=== PATIENT | male | born 1965 | race Caucasian/White ===

== ENCOUNTER 2016-05-25 17:21 | Emergency (ER) | payer MEDICARE ==
[~2016-05-25 17:21] MED LIST: AUGMENTIN875 MG PO; HUMALOG100 U/M1 SUBQ; IRON SUPPLEMENT1 TAB PO; LACTULOSE10 GM/15 M PO; LANTUS100 UNITS/ SUBQ; LASIX PO; LIPITOR20 MG PO; LISINOPRIL10 MG PO; MOBIC PO; MONOCAPS TABLE1 EACH PO; NEURONTIN300 MG PO; POTASSIUM CHLO20 ME1 PO; PROPRANOLOL HCL10 M1 PO; SPIRONOLACTONE50 MG PO; XIFAXAN550 MG PO; ZINC SULFATE220 M1 PO
== END 2016-05-25 17:22 | disposition left against medical advice (07) ==
LOC: SED 17:21
DX: Z53.21 Procedure and treatment not carried out due to patient leaving prior to being seen by health care provider (principal)

== ENCOUNTER → 2016-06-13 | Outpatient (CLI) | payer MEDICARE ==
--- NOTE | ~2016-06-13 | MR176 ---
[facility] A Service of [facility] RADIOLOGY TEXT RESULTS PATIENT: DARRIN SWARTZ LOCATION: [facility] : 65 UNIT #: [id number] AGE: [address]: SILVESTRE CORRALES SEX: M ORDER DR: [id number] [facility] [address] [place], [place] [address] [id number] O MR#: [id number] Acc #: [id number] NAME: DARRIN SWARTZ. : 1965 SEX: M STUDY DATE/TIME: 06/13/2016 17:25 UNIT: [facility] ROOM: STUDY DESCRIPTION: MR Thoracic Wo Contrast Attending Physician: Silvestre Corrales Referring Physician: Silvestre Corrales Primary Care Physician: Silvestre Corrales MRI CENTER REPORT This report is preliminary unless electronic signature is present. MRI of the thoracic spine without contrast dated 06/13/2016. COMPARISON MRI of the cervical and lumbar spine without contrast dated 06/13/2016. No prior thoracic spine studies in this facility. HISTORY Patient fell off a painting ladder 24 feet in 2004 with a history of fractures. Numbness intermittently in both arms and legs since then. Chronic pain. FINDINGS Multisequence, multiplanar imaging of the thoracic spine was attempted without contrast. Though portions of the upper to mid thoracic spine are visualized, the levels from T8 inferiorly are difficult to visualize on the sagittal images. In the axials, the images below T10-11 are difficult to visualize. Multiple attempts have been obtained, but still it is very limited. There is a large right-sided pleural effusion is seen. Large right-sided pleural effusion is present, which is probably causing the loss of signal likely due to severe dielectric effect. Gradient echo sequence looks better than FSE sequence. There is diffuse decreased T1 signal in the visualized bones. It could be related to chronic systemic disease like renal failure or chronic hematopoietic disease, like anemia. No discrete well-defined bony mass with edema could be identified in the visualized portions. Mild facet degenerative changes are noted at multiple levels of the thoracic spine. There is disc disease at multiple levels with small protrusions at T1-2 to T3-4 levels based on the sagittal T1 sequence. Small similar protrusion is also seen at C7-T1, C6-7. Axials demonstrate suspicious central protrusions at T7-8 to T10-11 levels with probably more prominent central and left subarticular protrusions at T11-12. Borderline sized to mild canal stenosis is noted at T10-11 and T9-10 levels. [facility]. [facility] A Service of [facility] RADIOLOGY TEXT RESULTS PATIENT: DARRIN SWARTZ LOCATION: [facility] : 65 UNIT #: [id number] AGE: [address]: SILVESTRE CORRALES SEX: M ORDER DR: IMPRESSION 1. Study is significantly limited despite multiple repeats. The images of the lower thoracic spine are not clearly seen due to signal loss. It is worse in the sagittal plane when compared to the axial planar images. Large right-sided pleural effusion is present, which is probably causing the loss of signal likely due to severe dielectric effect. Gradient echo sequence looks better than FSE sequence. 2. There appear to be mild disc protrusions at multiple levels along with mild bilateral facet changes as described above. Borderline sized to mild canal stenosis is suspected at T9-10 and T10-11. 3. Evaluation of the cord signal is limited. Subtle increased T2 signal within the center of T6-7 cord could be a slightly prominent central canal, nonspecific. The cord is not enlarged. 4. There is diffuse decreased T1 signal in the visualized bones. It could be related to chronic systemic disease like renal failure or chronic hematopoietic disease, like anemia. No discrete well-defined bony mass with edema could be identified in the visualized portions. Dictated by... Rommel Perez M.D. THIS IS AN ELECTRONICALLY VERIFIED REPORT Rommel Perez M.D. at 06/15/2016 4:46 PM CPR/tmw TD: 06/14/2016 16:17 JOB #: [id number] MRI CENTER REPORT Page 1 of 1 COPY
--- NOTE | ~2016-06-13 | MR32 ---
[facility] A Service of [facility] RADIOLOGY TEXT RESULTS PATIENT: DARRIN SWARTZ LOCATION: [facility] : 65 UNIT #: [id number] AGE: [address]: WEI CORRALES SEX: M ORDER DR: [id number] [facility] [address] [place], [place] [address] [id number] O MR#: [id number] Acc #: [id number] NAME: DARRIN SWARTZ. : 1965 SEX: M STUDY DATE/TIME: 06/13/2016 17:25 UNIT: [facility] ROOM: STUDY DESCRIPTION: MR Cervical Wo Contrast Attending Physician: Wei Corrales Referring Physician: Wei Corrales Primary Care Physician: Wei Corrales MRI CENTER REPORT This report is preliminary unless electronic signature is present. EXAM MRI of the cervical spine without contrast dated 06/13/2016 COMPARISON STUDIES MRI of the thoracic and lumbar spine study from 06/13/2016. No dedicated prior cervical spine studies. HISTORY The patient fell from a ladder about 24 feet high in 2004 with fractures. Numbness intermittently in both arms and legs since then. Chronic pain. TECHNIQUE Multisequence multiplanar imaging of the cervical spine was obtained without contrast. FINDINGS Vertebral body heights and alignment are preserved. Degenerative disc disease is at multiple levels. Motion artifact limits evaluation despite repeating the sagittal T2 sequence 4 times. This limits evaluation of cord signal change. No obvious cord mass is seen. Significant motion is also noted in the axial T2 restore sequences despite repeating it. Degenerative changes are evaluated at multiple levels after giving allowances to motion artifact. C2-3, C3-4: Mild disc bulge but otherwise unremarkable. C4-5: Mild disc bulge with mild canal stenosis. No neuroforaminal narrowing. C5-6: Disc osteophyte complex with bilateral uncinate spurs, inferior bilateral neuroforaminal narrowing with mild to moderate canal stenosis. [facility] A Service of [facility] RADIOLOGY TEXT RESULTS PATIENT: DARRIN SWARTZ [facility] UNIT #: [id number] AGE: [address]: WEI CORRALES SEX: M ORDER DR: C6-7: Disc osteophyte complex with bilateral uncinate spurs, worse in the right. Mild to moderate inferior right neuroforaminal narrowing is seen with moderate canal stenosis. C7-T1: Disc osteophyte complex with inferior bilateral neuroforaminal narrowing particularly in the right. Superior aspects of the neural foramen are widely patent. Borderline size canal. IMPRESSION 1. Significant motion artifact limits evaluation. 2. After giving allowances to motion the study was evaluated. Multilevel degenerative changes are noted as described above, relatively worse at C5-6 and C6-7 followed by C4-5. 3. Large right pleural effusion. Dictated by... Rommel Perez M.D. THIS IS AN ELECTRONICALLY VERIFIED REPORT Rommel Perez M.D. at 06/15/2016 4:31 PM CPR/albaro TD: 06/14/2016 16:21 JOB #: [id number] MRI CENTER REPORT Page 1 of 1 COPY
--- NOTE | ~2016-06-13 | MR113 ---
[facility] A Service [facility] RADIOLOGY TEXT RESULTS PATIENT: DARRIN SWARTZ LOCATION: [facility] : 65 UNIT #: [id number] AGE: [address]: WEI ROSALES SEX: M ORDER DR: [id number] [facility] [address] [place], [place] [address] [id number] O MR#: [id number] Acc #: [id number] NAME: DARRIN SWARTZ. : 1965 SEX: M STUDY DATE/TIME: 06/13/2016 17:25 UNIT: [facility] ROOM: STUDY DESCRIPTION: MR Lumbar Wo Contrast Attending Physician: Wei Rosales Referring Physician: Wei Rosales Primary Care Physician: Wei Rosales MRI CENTER REPORT This report is preliminary unless electronic signature is present. EXAM MRI lumbar spine without contrast dated 06/13/2016. COMPARISON MRI cervical and thoracic spine without contrast dated 06/13/2016. HISTORY Patient fell off painting ladder 24 feet high in 2004. History of fractures at that time with numbness intermittently since then in both arms and legs. TECHNIQUE Multisequence multiplanar imaging of the lumbar spine was obtained with multiple repeats. FINDINGS The study is still nondiagnostic. Grossly the vertebral body heights are relatively preserved based on sagittal T2 (series 3, image 7). The spine could not be evaluated on the other images or other sequences. The study cannot be charged if the patient cannot be brought back and adequately imaged. I have sent an e-mail to that effect to subassembly supervisor Bk Bagley at 05:40 p.m. on 06/14/2016. Dictated by... Rommel Perez M.D. THIS IS AN ELECTRONICALLY VERIFIED REPORT Rommel Perez M.D. at 06/15/2016 4:31 PM CPR/albaro TD: 06/14/2016 17:57 JOB #: [id number] [facility] A Service [facility] RADIOLOGY TEXT RESULTS PATIENT: DARRIN SWARTZ [facility] UNIT #: [id number] AGE: [address]: WEI ROSALES SEX: M ORDER DR: MRI CENTER REPORT Page 1 of 1 COPY
== END | disposition home or self-care (01) ==
LOC: CMRI 16:52
DX: Z09 Encounter for follow-up examination after completed treatment for conditions other than malignant neoplasm (principal); R60.9 Edema, unspecified; G89.29 Other chronic pain; M47.892 Other spondylosis, cervical region; J90 Pleural effusion, not elsewhere classified; M51.24 Other intervertebral disc displacement, thoracic region
CPT/HCPCS: 72141; 72146; 72148

== ENCOUNTER → 2016-06-27 | Outpatient (CLI) | payer MEDICARE ==
--- NOTE | ~2016-06-27 | XA170 ---
[facility] A Service of [facility] & [facility] RADIOLOGY TEXT RESULTS PATIENT: DARRIN SWARTZ LOCATION: [facility] : 65 UNIT #: [id number] AGE: [address]: WEI ROSALES SEX: M ORDER DR: [id number] [facility] [address] [place], [place] [address] [id number] O MR#: [id number] Acc #: [id number] NAME: DARRIN SWARTZ. : 1965 SEX: M STUDY DATE/TIME: 06/27/2016 11:57 UNIT: [facility] ROOM: STUDY DESCRIPTION: XA Paracentesis W Image Attending Physician: Wei Rosales Ordering Physician: Filippo Cortés M.D. Primary Care Physician: Wei Rosales MEDICAL IMAGING REPORT This report is preliminary unless electronic signature is present HISTORY Ultrasound guided paracentesis. HISTORY Refractive ascites. PROCEDURE: Attendant risks and options were discussed with the patient. He understands and wishes to proceed. Right lower quadrant was imaged. Skin was prepped and draped over this area. Utilizing maximal sterile barrier technique appropriate for the procedure guidelines and sterile gloves a 5-Greek catheter was inserted and 9 meters of fluid was removed. A single ultrasound image was recorded. Catheter removed. Hemostasis achieved. Procedure very well tolerated. CONCLUSIO Successful therapeutic paracentesis with removal of 9 L of fluid. Dictated by... Jason Quintero M.D. THIS IS AN ELECTRONICALLY VERIFIED REPORT Jason Quintero M.D. at 06/28/2016 7:25 AM KEMI/milton TD: 06/27/2016 13:17 JOB #: [id number] MEDICAL IMAGING REPORT Page 1 of 1 COPY
[2016-06-27 11:29] LABS: HEMOGLOBIN 10.3 gm/dL (13.0-16.0); MEAN CELL VOLUME 98.4 FL (83-96); MEAN CORPUSCULAR HEMOGLOBIN 32.8 PG (28-34); MEAN CORPUSCULAR HGB CONC 33.3 g/dL (30-36); MEAN PLATELET VOLUME 8.5 FL (6.5-11.5); RED BLOOD COUNT 3.15 X10e (3.90-5.60); RED CELL DISTRIBUTION WIDTH 16.9 % (11.0-15.5); WHITE BLOOD COUNT 5.7 X10e3 (4.0-10.5)
[2016-06-27 11:39] LABS: INR 1.7; PARTIAL THROMBOPLASTIN TIME 45.1 SECONDS (23.5-31.3); PROTHROMBIN TIME (PATIENT) 18.5 SECONDS (9.6-11.5)
== END | disposition home or self-care (01) ==
LOC: CIVR 06-21 14:00
PROVIDERS: Nurse Practitioner Family
PROC: 0W9G3ZX Drainage of Peritoneal Cavity, Percutaneous Approach, Diagnostic (ICD-10-PCS; principal; 2016-06-27)
DX: R18.8 Other ascites (principal)
CPT/HCPCS: 36415; 85027; 85610; 85730

== ENCOUNTER 2016-07-02 00:49 | Inpatient (IN) | payer MEDICARE ==
--- NOTE | ~2016-07-02 | CO ---
Unit #: [id number] #: [id number] Patient: DARRIN SWARTZ [id number] [facility]. [place], [place] [address] [id number] I MR#: [id number] NAME: DARRIN SWARTZ. ROOM: [facility] Age: 51 Sex: M Admission Date: 07/02/2016 : 1965 Attending Physician: Meka Myrick M.D. Primary Care Physician: Silvestre Rosales Consultation Date: 07/02/2016 CONSULTATION REPORT REASON FOR CONSULTATION Acute renal failure, severe metabolic acidosis. HISTORY OF PRESENT ILLNESS 51-year-old male with significant past medical history of cirrhosis, mainly came because of increasing shortness of breath, not feeling well and bilateral lower extremity swelling, which is slowly worsening. Patient had a longstanding history of cirrhosis, which is improving. The patient was pretty alert and oriented but slowly worsening in the last six to eight hours and also found to be extremely acidotic with increased lactic acid level, increased procalcitonin level. Started on antibiotics. But before I evaluated the patient completely, when I saw the patient, a director of food and nutrition services already talked to the patient's family about possibility of comfort care and they are discussing it and we agreed to that. PAST MEDICAL HISTORY Significant for cirrhosis, polysubstance abuse, history of NM in the past, diabetes mellitus, a gallstone, history of CPR done, history of appendectomy. MEDICATIONS Were reviewed and did include Lipitor, Lasix, multivitamin, Humalog, spironolactone. SOCIAL HISTORY Patient lived with his . He smokes one pack of cigarettes. He used to drink a lot but stopped drinking alcohol recent. REVIEW OF SYSTEM Already explained. PHYSICAL EXAMINATION GENERAL: Patient is a middle age male, extremely cachectic looking by his face. Very short of breath and agonal breathing. VITAL SIGNS: Last blood pressure was hardly 90/60, pulse is 130, respiratory rate is 22, oxygen saturation is 88%. HEENT: Significant temporal wasting. Pupils are somewhat dilated. Hardly reactive. NECK: Supple. No JVD. Extremely ectatic on the skin. HEART: S1 and S2 but very tachycardic. LUNGS: Bilateral crackles. ABDOMEN: Protuberant. EXTREMITIES: Edema. NEUROLOGIC: Patient is hardly responsive at this time. Unit #: [id number] #: [id number] Patient: DARRIN SWARTZ DIAGNOSTIC STUDIES LABORATORY: Labs were reviewed in detail and patient is extremely acidotic with increased procalcitonin level. ASSESSMENT AND PLAN 1. Acute kidney injury. 2. Septic shock. 3. Urosepsis. 4. Cirrhosis. 5. Pancytopenia. 6. Diabetes mellitus. DISCUSSION At this time patient is already on comfort care. I will not write any ore orders and will follow up patient only if needed. Will not get IV fluid or any diuretics. Thank you for letting me participate. Dictated by... Salena Romero TD: 07/03/2016 05:32 JOB #: [id number] CONSULTATION REPORT Page 1 of 1 X Curly Mcbride MD X CONSULTATION REPORT
--- NOTE | ~2016-07-02 | CR72 ---
[facility] A Service of [facility] & [facility] RADIOLOGY TEXT RESULTS PATIENT: DARRIN SWARTZ LOCATION: [facility] : 65 UNIT #: [id number] AGE: [address]: Renee Mckeon MD SEX: M ORDER DR: [id number] [facility] [address] [place], [place] [address] [id number] E MR#: [id number] Acc #: [id number] NAME: DARRIN SWARTZ. : 1965 SEX: M STUDY DATE/TIME: 07/02/2016 2:08 UNIT: [facility] ROOM: STUDY DESCRIPTION: CR Chest Single View Portable Attending Physician: Jayda Velasco A.P.R.N. Ordering Physician: Jayda Velasco A.P.R.N. Primary Care Physician: Silvestre Rosales MEDICAL IMAGING REPORT This report is preliminary unless electronic signature is present EXAM Single view chest INDICATION Shortness of air for 4 days. FINDINGS Single portable AP view of the chest compared to 10/25/2015. Heart is mildly enlarged. There is moderate interstitial edema. No pneumothorax. IMPRESSION Development of moderate interstitial edema. Dictated by... Jone Hutson M.D. THIS IS AN ELECTRONICALLY VERIFIED REPORT Jone Hutson M.D. at 07/02/2016 4:10 AM MEGHAN/marta TD: 07/02/2016 03:38 JOB #: [id number] MEDICAL IMAGING REPORT Page 1 of 1 COPY
--- NOTE | ~2016-07-02 | DS ---
Unit #: [id number] #: [id number] Patient: DARRIN SWARTZ [id number] [address] [id number] I MR#: [id number] NAME: DARRIN SWARTZ. ROOM: [facility] Age: 51 Sex: M Admission Date: 07/02/2016 : 1965 Discharge Date: 07/02/2016 Attending Physician: Meka Myrick M.D. Primary Care Physician: Silvestre Rosales DISCHARGE SUMMARY SUMMARY The patient was made DNR and comfort care by family with hospice. The patient was made comfort care. All the antibiotics and treatment has been stopped according to family wishes. Discussed with Dr. Velasquez and Dr. Velasquez talked with the family. They all agreed for comfort care only so patient was made comfort care. Later, patient on 07/02/2016 at 1523 according to the nurse for time of . DISCHARGE DIAGNOSES 1. Septic shock. 2. Urinary tract infection, rule out spontaneous bacterial peritonitis. 3. Severe hypotension. 4. Cirrhosis, alcohol related. 5. Lactic acidosis. 6. Anemia, acute on chronic, iron deficiency. 7. Severe thrombocytopenia from cirrhosis. 8. Severe metabolic acidosis. 9. Diabetes mellitus type 2 with hypoglycemia. 10. Acute hypoxic respiratory failure. 11. Severe protein malnutrition. 12. Metabolic acidosis. 13. End stage liver disease. 14. Possible pulmonary edema. 15. Acute kidney injury. 16. Hypocalcemia. 17. Severe metabolic acidosis. 18. Hypomagnesemia. CONSULTATION 1. Dr. Velasquez. 2. Dr. Mcbride. 3. Dr. Carlos. PROCEDURES None. LAB DATA ABG - pH 7.14, carbon dioxide 39, oxygen 79. Sodium 130, potassium 4.4, carbon dioxide 12, glucose 61, creatinine 2.0, calcium 8.3, AST 55, ALT 16, alkaline phosphatase 26, total bilirubin 8.6, total protein 4.7, albumin 1.2. WBC 7.3, hemoglobin 8.7, platelets 41. Unit #: [id number] #: [id number] Patient: DARRIN SWARTZ Chest x-ray shows moderate interstitial edema. HOSPITALIZATION COURSE This is a 51-year-old with severe end stage cirrhosis, admitted because of shortness of breath and leg swelling. Septic shock from likely spontaneous bacterial peritonitis and urinary tract infection: The patient was started on vancomycin, Zosyn and Flagyl. IV fluids were given and resuscitated. Urinary tract infection: Urine cultures and blood cultures are sent. IV antibiotics started. Severe hypotension from septic shock: Patient started on fluids and Levophed has been started. Cirrhosis, alcohol related, terminal, with hyper-coagulopathy, ascites, varices and elevated ammonia. Severe lactic acidosis with metabolic acidosis: Patient received IV fluids. Anemia, acute on chronic, iron deficiency: No active bleeding. Thrombocytopenia from cirrhosis: No active bleeding. Severe metabolic acidosis: The patient was started on IV fluids and IV bicarbonate. Diabetes mellitus type 2 with hypoglycemia: D5 has been started. Acute hypoxic respiratory failure: Oxygen was given. Patient was not intubated because family later decided on comfort care only. Discussed details with . Patient was later made DNR and hospice by Dr. Velasquez after talking to the family. The patient has severe liver disease with severe comorbidities. He is a candidate for hospice. The patient was pronounced on July 02, 2016, at 1523. Dictated by... Salena Emmanuel/tabatha TD: 08/02/2016 07:03 JOB #: [id number] Unit #: [id number] #: [id number] Patient: DARRIN SWARTZ DISCHARGE SUMMARY Page 1 of 1 X Meka Myrick MD DISCHARGE SUMMARY
--- NOTE | ~2016-07-02 | EKG ---
PATIENT: DARRIN SWARTZ UNIT #: [id number] Ventricular Rate: 123 BPM Atrial Rate: 123 BPM P-R Interval: 156 ms QRS Duration: 104 ms Q-T Interval: 318 ms QTC Calculation(Bezet): 455 ms P Point Lay: 47 degrees Calculated R Point Lay: 42 degrees Calculated T Point Lay: 27 degrees Diagnosis Line: Sinus tachycardia Diagnosis Line: Otherwise normal ECG Diagnosis Line: When compared with ECG of 10-SEP-2015 06:14, Diagnosis Line: Vent. rate has increased BY 45 BPM Diagnosis Line: Nonspecific T wave abnormality now evident in Diagnosis Line: Lateral leads Diagnosis Line: Confirmed by TALISHA BUTLER MD ([id number]) on Diagnosis Line: 07/02/2016 8:10:58 AM INTERPRETING MD: CARRIE BUTTS
--- NOTE | ~2016-07-02 | CO ---
Unit #: [id number] #: [id number] Patient: DARRIN SWARTZ [id number] [facility]. [place], [place] [address] [id number] I MR#: [id number] NAME: DARRIN SWARTZ. ROOM: [facility] Age: 51 Sex: M Admission Date: 07/02/2016 : 1965 Attending Physician: Meka Myrick M.D. Primary Care Physician: Silvestre Rosales Consultation Date: 07/02/2016 CONSULTATION REPORT PRIMARY CARE PHYSICIAN Silvestre Rosales, FACULTY NEUROPSYCHOLOGIST REASON FOR CONSULTATION End-stage renal disease and the patient with alcoholic cirrhosis with shock and possible sepsis. HISTORY OF PRESENT ILLNESS Mr. Swartz is a very frail 51-year-old gentleman, who looks much older than his stated age. He had severe end-stage alcohol-induced cirrhosis. The patient had a large volume paracentesis of 9 L done a few decades, but still has massive ascites. He presented with increasing shortness of breath and flu-like symptoms. He is severely malnourished and is literally skin and bones except for tense ascites. The patient was hypotensive on admission. He was given IV fluids, pressors, and antibiotics for sepsis. He has been transfused 2 units of packed cells. The patient is obtunded and is unable to provide any history. PAST MEDICAL HISTORY Significant for hypertension, hyperlipidemia, diabetes, history of varices in the past, history of alcohol induced cirrhosis with hepatic encephalopathy, pancytopenia, and coagulopathy. MEDICATIONS At home included Lipitor, Lasix, multivitamins, rifaximin, Zinc, lactulose, Humalog, spironolactone, iron. ALLERGIES He has no known drug allergies. SOCIAL HISTORY Continues to smoke. Does not drink currently. REVIEW OF SYSTEMS Review of organ systems is not possible due to the fact that the patient is unable to reply. PHYSICAL EXAMINATION GENERAL: Obtunded, poorly responsive, and severely malnourished literally skin and bones. VITAL SIGNS: Indicate a temperature of 98.1, pulse is 95 per minute and regular, respiratory rate is 28. His blood pressure is 86/43. He weighs 278 pounds. Baseline weight is about 240 pounds. Unit #: [id number] #: [id number] Patient: DARRIN SWARTZ HEENT: He has moderate pallor. There being no icterus, lymphadenopathy. Grade 3 pitting peripheral edema. CARDIOVASCULAR: Reveals normal heart sounds. LUNGS: Auscultation over the lungs very poor diminished symmetric air entry. ABDOMEN: Distended due to underlying ascites. Liver and spleen not palpable. Bowel sounds are normal. DIAGNOSTIC STUDIES LABORATORY RESULTS: Significant for an INR of 2.4. BUN and creatinine of 33 and 2.0, sodium is 130, potassium 4.4, albumin is 1.3. Total bilirubin is 8.6, most of which is direct. AST is 55, ALT 16. CK total is 500. Ammonia 62. Hemoglobin is 8.7 with MCV of 105, platelet count is 41,000. IMPRESSION The patient with severe advanced cirrhosis from alcohol abuse with severe protein-calorie malnutrition, sepsis and shock, ascites, thrombocytopenia, coagulopathy, anasarca, and very poor respiratory reserve. The management plan will include resuscitation of the patient including possibility of upper GI bleed from a varices. Shortly after my assessment, I was informed that the patient has made DNR and for comfort measures only. As a result, no further intervention is being planned. Dictated by... Salena Rene/andres TD: 07/17/2016 03:03 JOB #: [id number] CC: Meka Myrick M.D. CONSULTATION REPORT Page 1 of 1 X Joshua Carlos MD X CONSULTATION REPORT
--- NOTE | ~2016-07-02 | CO ---
Unit #: [id number] #: [id number] Patient: DARRIN SWARTZ [id number] [address] [place], [place] [address] [id number] Alvin MR#: [id number] NAME: DARRIN SWARTZ ROOM: [facility] Age: 51 Sex: M Admission Date: 07/02/2016 : 1965 Attending Physician: Meka Myrick M.D. Primary Care Physician: Silvestre Rosales Consultation Date: 07/02/2016 CONSULTATION REPORT REASON FOR CONSULTATION Shock, possible sepsis. HISTORY OF PRESENT ILLNESS The patient is a 51-year-old gentleman with severe end stage alcohol-induced cirrhosis. He apparently received large volume paracentesis of approximately 9 L just a few days ago. He then apparently had shortness of breath and flu-like symptoms. The patient currently is obtunded and cannot add to the history. In the emergency room, he was hypotensive despite volume resuscitation. Pressors were started. I began broad spectrum antibiotics for possible sepsis. GI has been consulted, transfused two units of blood and are considering EGD. As above, the patient is obtunded and cannot add to the history. PAST MEDICAL HISTORY Remarkable for: 1. End stage alcohol-induced cirrhosis with multiple consequences such as hepatic encephalopathy, thrombocytopenia, anemia, hypoglycemia, coagulopathy, etc. 2. Hyperlipidemia. 3. Hypertension. 4. Diabetes. 5. Apparently he has had varices in the past. MEDICATIONS Medications at home, according to a Med Rec list: 1. Lipitor. 2. Lasix. 3. Multivitamins. 4. Rifaximin. 5. Zinc. 6. Lactulose. 7. Humalog. 8. Spironolactone. 9. Iron. ALLERGIES No known medical allergies. SOCIAL HISTORY Apparently continues to smoke. I was told that he does not currently drink. FAMILY HISTORY Unit #: [id number] #: [id number] Patient: DARRIN SWARTZ Unobtainable. REVIEW OF SYSTEMS Unobtainable. PHYSICAL EXAMINATION GENERAL: The patient is obtunded, poorly responsive in the Intensive Care Unit. Currently not intubated. VITAL SIGNS: He is afebrile. Pulse is 127, blood pressure is 99/43, respiratory rate was 22 in the emergency room. Saturations were 88% on room air. HEENT: Sclerae are icteric. Head atraumatic. NECK: Supple. No supraclavicular or cervical adenopathy appreciated. CHEST: Equal breath sounds. Posterior auscultation not performed. No wheeze or stridor. CARDIAC EXAMINATION: Reveals regular rate and rhythm. No pathologic murmur, rub or gallop. Somewhat tachycardic. ABDOMEN: Ascitic, nontender. No rebound. EXTREMITIES: Significant 2 to 3+ bilateral edema. He does have some bruising. NEUROLOGICAL: He will move, he will raise his head up in bed and move all four extremities. Otherwise, does not cooperate with a full neurologic exam. DIAGNOSTIC STUDIES IMAGING: Chest x-ray suggestive of pulmonary edema. Arterial blood gas - pH 7.2, pCO2 of 33, pO2 of 83 on 10 L Oxymizer upon presentation. Now his pH is 7.15, pCO2 right eye 39, pO2 of 80 on 11 L Oxymizer. His BUN is 33, creatinine is 2.0, sodium 130. Venous bicarb is 12 and worsening. Albumin only 1.2, total bili 8.6. BNP 489, ammonia 62, lactate 12.2. INR 2.4. Cardiac enzymes negative. White blood cell count 7.3, hemoglobin 8.6, platelet count 41. Urinalysis - 10-25 red cells, 5-10 white cells. Blood cultures performed and are pending. CARDIOVASCULAR: EKG - sinus tachycardia. No definite acute ischemic changes. IMPRESSION 1. Respiratory failure. 2. Metabolic acidosis. 3. End stage liver disease with multiple subsequent consequences. 4. Possible sepsis, likely urinary source. Consider peritoneal source. 5. Acute kidney injury. 6. Anemia. 7. Thrombocytopenia, hypoglycemia, etc. 8. Possible pulmonary edema. Unit #: [id number] #: [id number] Patient: DARRIN SWARTZ PLAN The is apparently en route and should be here within minutes. Apparently she has discussed possible DNR status. Certainly, if he is not DNR, he will need intubation, central line access, likely paracentesis. EGD is being considered, and echocardiogram. Depending on resuscitation status and goals of treatment, comfort care would not be unreasonable. Care will be turned over to Dr. Dimas in the morning and I will try to contact him, but because of the critical illness of the patient, I felt compelled to see the patient MARNIE. Dictated by... Salena Gruber/tabatha TD: 07/02/2016 11:48 JOB #: [id number] CC: [id number] CONSULTATION REPORT Page 1 of 1 X Carlito Velasquez MD X CONSULTATION REPORT
--- NOTE | ~2016-07-02 | HP ---
Unit #: [id number] #: [id number] Patient: DARRIN SWARTZ [id number] [address] [place], [place] [address] [id number] MR#: [id number] NAME: DARRIN SWARTZ. ROOM: [facility] Age: 51 Sex: M Admission Date: 07/02/2016 : 1965 Attending Physician: Meka Myrick M.D. Primary Care Physician: Silvestre Rosales HISTORY AND PHYSICAL CHIEF COMPLAINT Shortness of breath and leg swelling. HISTORY OF PRESENT ILLNESS A 51 year old with history of cirrhosis admitted because of shortness of breath. Currently patient is on 9 liters oxygen and Levophed. Patient is alert, oriented x3 and able to provide history, and also history is taken from ER physician, chart and his . According to her, his legs were swollen for a long time. He had paracentesis and 9.7 liters removed from his belly 4 days ago, but his swelling got worse again, and his breathing got worse since 2 days. He has shortness of breath, nausea, vomiting and fever. No chills. Has cough. [place] like he had the flu. He has swelling in both legs up to his groin. He felt dizzy. No passing out. No constipation. He has nausea and vomiting. No diarrhea. PAST MEDICAL HISTORY 1. History of cirrhosis, alcohol induced. 2. Polysubstance abuse. 3. History of non-ST myocardial infarction elevation. 4. Diabetes mellitus type 2 with severe hypoglycemia. 5. Hypertension. 6. Hyperlipidemia. 7. History of gallstones with colic. No cholecystitis. 8. History of respiratory failure. 9. Pancytopenia. 10. Iron deficiency anemia. 11. History of cardiopulmonary resuscitation and hypotension. 12. Severe epistasis from thrombocytopenia. 13. 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 14. History of appendectomy. 15. History of right knee surgery. ALLERGIES None. CURRENT HOME MEDICATIONS 1. Lipitor 20 daily. 2. Lasix 40 daily. 3. Multivitamin 1 tablet daily. 4. Xifaxan 550 p.o. b.i.d. 5. Zinc sulfate 220 p.o. b.i.d. 6. Lactulose 30 mL p.o. t.i.d. 7. Humalog 5 units subcu t.i.d. Unit #: [id number] #: [id number] Patient: DARRIN SWARTZ 8. Spironolactone 50 daily 9. Iron 1 tablet p.o. b.i.d. FAMILY HISTORY Negative for liver disease. SOCIAL HISTORY Lives with . Smokes about 1 pack of cigarettes per day. No longer drinks alcohol. No drugs. REVIEW OF SYSTEMS Currently he is complaining of abdominal and thigh pain. He wants me to give IV morphine. Also complains of left thigh ecchymosis. Reviewed 12-point systems with him, which are negative except as in the HPI. PHYSICAL EXAMINATION VITAL SIGNS: Temperature is 97.9, pulse 127, respirations 22, blood pressure 99/43, BMI 33, saturations 88% on 10 liters. GENERAL EXAMINATION: A 51 year old lying in bed, tachypneic, tachycardic. EYES: Pupils equally reactive to light and accommodation. No pallor. No icterus. MOUTH: Dry mucosa present. NECK: Supple. HEART: S1, S2 heard. Tachycardic present, irregular. No murmurs appreciated. LUNGS: Occasional crackles in the bases present. ABDOMEN: Distended with fluid. EXTREMITIES/SKIN: Bilateral 4+ pitting edema present. Huge ecchymosis present in the left inner thigh with multiple other bruises on his body likely from thrombocytopenia. NEUROLOGIC: Patient is alert, oriented x3, moving all extremities. DIAGNOSTIC STUDIES LAB DATA: WBC 7.3, hemoglobin 8.7, platelets 41. Lactic acid 12.2, sodium 130, potassium 4.4, creatinine 2, carbon dioxide 12, glucose 61, calcium 8.3, AST 55, ALT 16, alkaline phosphatase 26, total bilirubin 8.6, total protein 4.7, albumin 1.2. BNP 489. Ammonia 62. Troponin 0.07. ABGs - pH 7.21, carbon dioxide 33, oxygen 83. Lactic acid on admission 13.2; BNP 428. Urinalysis shows WBC 5-10. CARDIOVASCULAR: EKG - Sinus tachycardia. IMAGING: Chest x-ray shows development of moderate interstitial edema. ASSESSMENT AND PLAN 1. Septic shock, most likely from urinary tract infection, rule out spontaneous bacterial peritonitis. Patient was started on vancomycin, Zosyn and Flagyl. Patient receiving IV fluids. I cannot give fluids as per septic shock protocol because patient is already fluid overload and he has pulmonary edema and he is needed 10 liters of oxygen, so I am going to hydrate him slowly. 2. Urinary tract infection. Patient is receiving IV antibiotics. I am going do urine and blood cultures. Rule out influenza, as he had flu-like symptoms recently. Rule out SBP. He needs paracentesis for diagnosis, but currently he is very sick. 3. Severe hypotension from septic shock. Also, could be from cirrhosis. Patient is on Levophed. Continue with low fluid. 4. Cirrhosis, alcohol related. Terminal with hyper-coagulopathy, Unit #: [id number] #: [id number] Patient: DARRIN SWARTZ ascites, varices and likely elevated ammonia. Currently he is not in hepatic encephalopathy but monitor closely for it. 5. Lactic acidosis, most likely from septic shock versus cirrhosis and hypoperfusion and hypotension. 6. Anemia, acute on chronic, iron deficient. No active bleeding. 7. Severe thrombocytopenia from cirrhosis. He has multiple bruises on his legs. Monitor closely. He had severe epistasis in the past. I am going to give 1 unit of platelets. 8. Severe metabolic acidosis. I am going to start him on bicarb. 9. Diabetes mellitus type 2 with hypoglycemia. He is on D5. Monitor closely. 10. Acute hypoxic respiratory failure. Continue with oxygen. He might need intubation. I am going to discuss with and him and ask their opinion on intubation. 11. Severe protein malnutrition. 12. Patient has very poor prognosis. Patient has terminal liver cirrhosis. I am going to discuss with and patient regarding DNR and Hospice. Most likely patient is Hospice candidate. NOTE: Critical care time taken is 40 minutes. Dictated by Salena Emmanuel TD: 07/02/2016 09:06 JOB #: [id number] HISTORY AND PHYSICAL Page 1 of 1 X Meka Myrick MD HISTORY AND PHYSICAL
[2016-07-02 02:26] LABS: BASOPHIL% 0.1 % (0-2.5); EOSINOPHIL# 0.1 X10e3 (0-0.7); HEMATOCRIT 26.9 % (38.0-50.0); HEMOGLOBIN 8.6 gm/dL (13.0-16.0); LYMPHOCYTE# 0.1 X10e3 (1.0-3.5); LYMPHOCYTE% 2.8 % (17.0-45.0); MEAN CELL VOLUME 104.1 FL (83-96); MEAN CORPUSCULAR HEMOGLOBIN 33.2 PG (28-34); MEAN CORPUSCULAR HGB CONC 31.9 g/dL (30-36); MEAN PLATELET VOLUME 11.1 FL (6.5-11.5); MONOCYTE# 0.1 X10e3 (0-1.0); MONOCYTE% 1.9 % (3.0-12.0); NEUTROPHIL# 3.9 X10e3 (1.5-7.1); NEUTROPHIL% 92.2 % (40-75); RED BLOOD COUNT 2.59 X10e (3.90-5.60); RED CELL DISTRIBUTION WIDTH 18.4 % (11.0-15.5); WHITE BLOOD COUNT 4.3 X10e3 (4.0-10.5)
[2016-07-02 02:28] LABS: POC - CKMB 1.4 ng/mL (0.0-7.9); POC - TROPONIN <0.05 ng/mL (<=0.05)
[2016-07-02 02:40] LABS: DIFF IND YES; PLATELET COUNT 32 X10e3 (140-420)
[2016-07-02 02:48] LABS: INR 2.4; PROTHROMBIN TIME (PATIENT) 26.4 SECONDS (9.6-11.5)
[2016-07-02 02:50] LABS: URINE SOURCE CLEAN CATCH
[2016-07-02 02:56] LABS: PARTIAL THROMBOPLASTIN TIME 83.5 SECONDS (23.5-31.3)
[2016-07-02 03:04] LABS: URINE APPEARANCE TURBID; URINE BLOOD 2+ (NEG); URINE COLOR ORANGE; URINE GLUCOSE NEG (NEG); URINE KETONE TRACE (NEG); URINE LEUKOCYTE ESTERASE 1+ (NEG); URINE PROTEIN 1+ (NEG); URINE SPECIFIC GRAVITY 1.025 (1.003-1.035)
[2016-07-02 03:07] LABS: CULTURE INDICATED? YES; URINE BACTERIA AUWI NEG (NEGATIVE); URINE SQUAMOUS EPITHELIAL CELL OCC /[HPF]
[2016-07-02 03:10] LABS: ALBUMIN SERUM 1.4 g/dL (3.5-5.0); ALKALINE PHOSPHATASE 30 U/L (32-92); ALT (SGPT) 18 U/L (10-40); AST (SGOT) 56 U/L (10-42); BILIRUBIN, DIRECT 4.7 mg/dL (0.0-0.2); BILIRUBIN,INDIRECT 3.8 mg/dL (0.0-0.9); BILIRUBIN,TOTAL 8.5 mg/dL (0.2-2.0); BLOOD UREA NITROGEN 33 mg/dL (9-23); CALCIUM SERUM 8.3 mg/dL (8.4-10.2); CARBON DIOXIDE 14 mmol/L (22-31); CHLORIDE 97 mmol/L (100-111); GLOM FILT RATE Estimated 37.5 mL/min (>60); GLUCOSE FASTING 82 mg/dL (70-110); LIPASE 17 U/L (22-51); POTASSIUM 4.1 mmol/L (3.5-5.1); PROTEIN TOTAL SERUM 5.3 g/dL (6.0-8.3); SODIUM 126 mmol/L (135-145)
[2016-07-02 03:12] LABS: URINE BILIRUBIN POS (NEG)
[2016-07-02 03:13] LABS: URINE NITRATE POS (NEG)
[2016-07-02 03:15] LABS: U HYALINE CASTS AUWI 0-2 /[LPF]
[2016-07-02 03:15] LABS: AMYLASE <7 U/L (0-46)
[2016-07-02 03:17] LABS: DIFFERENTIAL COMMENT GIANT PLTS.; OVALOCYTES PRESENT; PLATELET ESTIMATE DECREASED (NORMAL)
[2016-07-02 03:19] LABS: ARTERIAL BLD GAS O2 SATURATION 92.4 % (90.0-100.0); ARTERIAL BLOOD GAS CARBOXY HB 2.1 %sat (0.0-9.0); ARTERIAL BLOOD GAS HCO3 13.5 mmol/L; ARTERIAL BLOOD GAS MET HB 0.6 %sat (0.0-2.0); ARTERIAL BLOOD GAS PCO2 33.7 mmHg (35.0-45.0); ARTERIAL BLOOD GAS PO2 83.7 mmHg (80.0-100); ARTERIAL BLOOD GAS pH 7.211 (7.350-7.450)
[2016-07-02 03:20] LABS: ARTERIAL BLOOD GAS ALLEN TEST NORMAL; ARTERIAL BLOOD GAS ART SITE RIGHT RADIAL; ARTERIAL DRAW? YES
[2016-07-02 03:21] LABS: ARTERIAL BLOOD GAS DELIVERY OXYMIZER
[2016-07-02 04:42] LABS: POC - CKMB 1.2 ng/mL (0.0-7.9); POC - TROPONIN <0.05 ng/mL (<=0.05)
[2016-07-02 07:22] LABS: ARTERIAL BLOOD GAS CARBOXY HB 1.6 %sat (0.0-9.0); ARTERIAL BLOOD GAS HCO3 13.5 mmol/L; ARTERIAL BLOOD GAS MET HB 0.7 %sat (0.0-2.0); ARTERIAL BLOOD GAS PCO2 39.2 mmHg (35.0-45.0)
[2016-07-02 07:25] LABS: ARTERIAL BLOOD GAS ALLEN TEST NORMAL; ARTERIAL BLOOD GAS ART SITE LEFT RADIAL; ARTERIAL BLOOD GAS PO2 79.9 mmHg (80.0-100); ARTERIAL BLOOD GAS pH 7.145 (7.350-7.450); ARTERIAL DRAW? YES
[2016-07-02 07:26] LABS: ARTERIAL BLOOD GAS DELIVERY OXYMIZER
[2016-07-02 07:53] LABS: BASOPHIL% 0.2 % (0-2.5); EOSINOPHIL# 0.2 X10e3 (0-0.7); EOSINOPHIL% 2.4 % (0.0-7.0); HEMATOCRIT 27.5 % (38.0-50.0); HEMOGLOBIN 8.7 gm/dL (13.0-16.0); LYMPHOCYTE# 0.4 X10e3 (1.0-3.5); LYMPHOCYTE% 6.2 % (17.0-45.0); MEAN CELL VOLUME 105.5 FL (83-96); MEAN CORPUSCULAR HEMOGLOBIN 33.2 PG (28-34); MEAN CORPUSCULAR HGB CONC 31.5 g/dL (30-36); MEAN PLATELET VOLUME 11.3 FL (6.5-11.5); MONOCYTE# 0.1 X10e3 (0-1.0); NEUTROPHIL# 6.5 X10e3 (1.5-7.1); NEUTROPHIL% 89.2 % (40-75); RED BLOOD COUNT 2.61 X10e (3.90-5.60); RED CELL DISTRIBUTION WIDTH 18.4 % (11.0-15.5)
[2016-07-02 08:10] LABS: ALBUMIN SERUM 1.2 g/dL (3.5-5.0); BILIRUBIN,TOTAL 8.6 mg/dL (0.2-2.0); BUN/CREATININE RATIO 16.5; CALCIUM SERUM 8.3 mg/dL (8.4-10.2); GLOM FILT RATE Estimated 37.5 mL/min (>60); POTASSIUM 4.4 mmol/L (3.5-5.1); PROTEIN TOTAL SERUM 4.7 g/dL (6.0-8.3)
[2016-07-02 08:18] LABS: WHITE BLOOD COUNT 7.3 X10e3 (4.0-10.5)
[2016-07-02 08:19] LABS: PLATELET COUNT 41 X10e3 (140-420)
[2016-07-02 08:20] LABS: DIFF IND NO
== END 2016-07-02 15:20 | disposition expired | DRG 871 ==
LOC: CED 00:49 → CEDOF 03:27 → CED 03:53 → CEDOF 03:53 → CICCU2 05:58 → CEDOF 05:58 → CICCU2 07:43
PROVIDERS: Family Medicine; Nurse Practitioner
DX: A41.9 Sepsis, unspecified organism (principal); R65.21 Severe sepsis with septic shock; J96.01 Acute respiratory failure with hypoxia; E43 Unspecified severe protein-calorie malnutrition; E87.2 Acidosis; N17.9 Acute kidney failure, unspecified; D69.6 Thrombocytopenia, unspecified; D61.818 Other pancytopenia; N39.0 Urinary tract infection, site not specified; K70.30 Alcoholic cirrhosis of liver without ascites; F10.10 Alcohol abuse, uncomplicated; D50.9 Iron deficiency anemia, unspecified; E11.649 Type 2 diabetes mellitus with hypoglycemia without coma; F17.210 Nicotine dependence, cigarettes, uncomplicated; D64.9 Anemia, unspecified; Z51.5 Encounter for palliative care; Z68.33 Body mass index [BMI] 33.0-33.9, adult; Z79.4 Long term (current) use of insulin
CPT/HCPCS: 36415; 36600; 71010; 80048; 80053; 80076; 81003; 82040; 82140; 82150; 82308; 82553; 82803; 82947; 83605; 83690; 83880; 84484; 85025; 85610; 85730; 86850; 86900; 86901; 87040; 87086; 87186; 93005; 94660; 94760; 94761; 96374; 96375; 99291; J2060; J2270; J2405; J2543; J3370; J3430; J7060